=== PATIENT | female | born 1935 | race Caucasian/White ===

== ENCOUNTER 2022-11-05 11:48 | Inpatient (IN) | payer MEDICARE, OTHER ==
[~2022-11-05] VITALS: Ht 157.5 cm; Wt 49.5 kg
[~2022-11-05 11:48] MED LIST: ACET325 PO; ASPI325 PO; ASPI81CH; ASPI81EC; ASPI81EC PO; BUME2 PO; DABI150C PO; DELTASONE20 MG PO; DORZOLAMIDE 2%10 M3 BOTHEYES; DORZOPSO BOTHEYES; EYEDROPS; FAMO20 PO; FENT50TP TOP; FLEC50 PO; FURO20 PO; HYDACE10B; HYDCHL25 PO; HYDMOR2 PO; HYDR1TAB94 PO; K-Dur20 MEQ PO; LISI5 PO; LISINOPRIL TAB 10M; METO25ER PO; METO50 PO; OXYC5 PO; POTCHL20ER PO; PRADAXA; Percocet 5-3251 EACH PO; Prinivil10 MG PO; RXSULTRIDS PO; SENN187 PO; SPIR25 PO; SULTRIDS PO; TIMO.5OPS
[2022-11-05 13:10] LABS: EOSINOPHILS ABSOLUTE AUTO 0.11 K/mm3 (0.00-0.68); EOSINOPHILS PERCENT AUTO 1 % (0-6); Hematocrit 38.9 % (33.0-51.0); Hemoglobin 12.8 g/dL (11.5-16.0); IMMATURE GRAN ABSOLUTE AUTO 0.56 K/mm3 (0.00-0.10); IMMATURE GRAN PERCENT AUTO 4 % (0-1); LYMPHOCYTES ABSOLUTE AUTO 1.88 K/mm3 (0.84-5.20); LYMPHOCYTES PERCENT AUTO 15 % (21-46); MONOCYTES ABSOLUTE AUTO 0.75 K/mm3 (0.16-1.47); MONOCYTES PERCENT AUTO 6 % (4-13); Mean Corpuscular HGB 31.1 pg (26.0-34.0); Mean Corpuscular HGB Conc 32.9 g/dL (31.5-36.5); Mean Corpuscular Volume 94 fL (80-100); Mean Platelet Volume 9.3 fL (9.1-12.4); NEUTROPHILS PERCENT AUTO 74 % (41-73); Platelet Count 364 K/mm3 (150-400); RDW Coefficient Variation 13.8 % (11.7-14.2); RDW Standard Deviation 47.9 fL (35.1-46.3); Red Blood Cell Count 4.12 M/mm3 (3.80-5.20); White Blood Cell Count 12.62 K/mm3 (4.00-11.30)
[2022-11-05 13:20] LABS: BASOPHILS ABSOLUTE AUTO 0.02 K/mm3 (0.00-0.23); BASOPHILS PERCENT AUTO 0 % (0-2)
[2022-11-05 13:29] LABS: Albumin, Blood 3.3 g/dL (3.4-5.0); Albumin/Globulin Ratio 0.7 (0.8-1.8); Bilirubin, Total 0.5 mg/dL (0.1-1.0); Calcium, Blood 9.9 mg/dL (8.5-10.1); Globulin, Blood 4.6 g/dL (2.2-4.0); Potassium, Blood 4.1 mmol/L (3.5-5.5); Total Protein, Blood 7.9 g/dL (6.4-8.2)
[2022-11-05] MEDS ORDERED: XARELTO15 MG PO ×2 (18:49)
[2022-11-05] MEDS ORDERED: METO100ER PO (18:49)
[2022-11-05 19:39] LABS: Source, Urine Straight Cath
[2022-11-05 19:43] LABS: Appearance, Urine Clear (Clear); Bilirubin, Urine Neg (Neg); Blood, Urine Neg (Neg); Glucose Qualitative, Urine Neg (Neg); Ketones, Urine Neg (Neg); Leukocyte Esterase, Urine Neg (Neg); Nitrite, Urine Neg (Neg); Protein, Urine Neg (Neg); Urobilinogen, Urine NORM (Normal); pH, Urine 6.5 (5.0-8.0)
[2022-11-05 19:46] LABS: Color, Urine Pale Yellow (P-Yellow)
--- NOTE | 2022-11-06 04:27 | NUR ---
SHIFT SUMMARY 86 YR F ADMITTED ON 11/05/22 FOR CELLULITIS OF THE LEFT LOWER LEG. FULL CODE. NO ACUTE CHANGES THIS SHIFT. PT IS VERY PLEASANT AND COOPERATIVE WITH CARE. SHE CALLS APPROPRIATELY TO USE THE BEDSIDE COMMODE. URINALYSIS WAS TAKEN AND RESULTS DID NOT INDICATE A UTI. SHE STATES A PAIN LEVEL OF 4 IN HER LEFT LOWER EXTREMITY AND WAS GIVEN PAIN MEDS PER EMAR. THE TOP OF HER LEFT FOOT HAS 2 QUARTER SIZED BLISTERS THAT ARE WEEPING.
[2022-11-06 06:09] LABS: Hematocrit 34.9 % (33.0-51.0); Hemoglobin 11.7 g/dL (11.5-16.0); Mean Corpuscular HGB 31.5 pg (26.0-34.0); Mean Corpuscular HGB Conc 33.5 g/dL (31.5-36.5); Mean Corpuscular Volume 94 fL (80-100); Mean Platelet Volume 9.6 fL (9.1-12.4); Platelet Count 334 K/mm3 (150-400); RDW Coefficient Variation 13.8 % (11.7-14.2); RDW Standard Deviation 47.8 fL (35.1-46.3); Red Blood Cell Count 3.72 M/mm3 (3.80-5.20); White Blood Cell Count 11.04 K/mm3 (4.00-11.30)
[2022-11-06 06:31] LABS: Thyroxine (T4) 5.6 ug/dL (4.8-13.9)
[2022-11-06 06:34] LABS: Bun/Creatinine Ratio 45.6 (12.0-20.0); Calcium, Blood 8.9 mg/dL (8.5-10.1); Creatinine, Blood 0.79 mg/dL (0.40-1.00); Potassium, Blood 3.8 mmol/L (3.5-5.5); Thyroid Stimulating Hormone 1.69 uIU/mL (0.360-4.800)
--- NOTE | 2022-11-06 19:42 | NUR ---
SUMMARY- PT A/O X4, USES CALL LIGHT. GETS UP TO BSC SBA VOIDING, HAD 2 MED SOFT BROWN BM'S TODAY. LLE CELLULITIS, RED, +2-3 EDEMA, BLISTERING, ONE OPEN AND DRAINING MOD AMOUNT CLEAR SEROUS, LEFT PEPITO AND CHANGED DISP CHUCKS. PT HAD OXY 5MG X1 TODAY FOR PAIN 3/10 UP TO 5/10 WITH MOVEMENT OR TOUCHING. PT TOLERATING FOOD AND FLUIDS. HAD CT END OF SHIFT. REPORTED TO SUMAYA LEDBETTER RN.
--- NOTE | 2022-11-07 04:25 | NUR ---
SHIFT SUMMARY PATIENT HAD NO ACUTE CHANGES. AXOX 4 AND SBA TO BSC. LLE CELLULITIS WITH TWO QUARTER SIZE BLISTERS. MILD WEEPING OPEN TO AIR WITH DISPOSABLE CHUCKS. DENIES CHEST PAIN, SOB, AND N/V. VSS/AFEBRILE. COOPERATIVE WITH CARE. CALL LIGHT IN REACH. BED IN LOWEST POSITION. WILL CONTINUE TO MONITOR UNTIL DAY SHIFT NURSE ASSUMES CARE.
[2022-11-07 05:33] LABS: Mean Corpuscular HGB 30.5 pg (26.0-34.0); Mean Corpuscular HGB Conc 32.4 g/dL (31.5-36.5); Mean Corpuscular Volume 94 fL (80-100); Mean Platelet Volume 9.5 fL (9.1-12.4); Platelet Count 367 K/mm3 (150-400); RDW Coefficient Variation 13.8 % (11.7-14.2); RDW Standard Deviation 48.2 fL (35.1-46.3); Red Blood Cell Count 3.61 M/mm3 (3.80-5.20)
[2022-11-07 06:16] LABS: Albumin, Blood 2.5 g/dL (3.4-5.0); Albumin/Globulin Ratio 0.7 (0.8-1.8); Bilirubin, Total 0.4 mg/dL (0.1-1.0); Bun/Creatinine Ratio 32.3 (12.0-20.0); Creatinine, Blood 0.84 mg/dL (0.40-1.00); Globulin, Blood 3.7 g/dL (2.2-4.0); Potassium, Blood 4.1 mmol/L (3.5-5.5); Total Protein, Blood 6.2 g/dL (6.4-8.2)
[2022-11-07 07:35] LABS: BAND PERCENT MAN 2 % (0-8); BASOPHILS ABSOLUTE MAN 0.12 K/mm3 (0.00-0.23); BASOPHILS PERCENT MAN 1 % (0-2); EOSINOPHILS ABSOLUTE MAN 0.25 K/mm3 (0.00-0.68); EOSINOPHILS PERCENT MAN 2 % (0-6); LYMPHOCYTES ABSOLUTE MAN 1.75 K/mm3 (0.84-5.20); LYMPHOCYTES PERCENT MAN 14 % (21-46); METAMYELOCYTE ABSOLUTE MAN 0.12 K/mm3 (0.00-0.00); METAMYELOCYTE PERCENT MAN 1 % (0-0); MONOCYTES PERCENT MAN 12 % (4-13); MYELOCYTE ABSOLUTE MAN 1.12 K/mm3 (0.00-0.00); MYELOCYTE PERCENT MAN 9 % (0-0); NEUTROPHILS ABSOLUTE MAN 7.62 K/mm3 (1.96-9.15); SEG NEUTROPHILS PERCENT MAN 59 % (41-73); TOTAL CELLS COUNTED 100
--- NOTE | 2022-11-07 13:10 | NUR ---
WOUND CARE WOUND PHOTO AND ASSESSMENT IN HARD CHART. HYDROCOLLOID TO DORSAL FOOT AND POSTERIOR PARTIAL THICKNESS WOUNDS. PT WOULD BENEFIT FROM CUSTOM ORTHOTIC SHOE. 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 WOUND CLINIC REFERRAL PLACED TO ASSIST PT WITH OBTAINING PROPER FOOTWEAR TO MITIGATE RISK OF FURTHER FOOT ULCERATION
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
--- NOTE | 2022-11-07 16:20 | NUR ---
SPN SHIFT SUMMARY PATIENT WAS PLESANT TODAY COOPERATIVE WITH CARE. PATIENT WAS CONTENIT OF BOWEL AND BLADDER TODAY, WAS A ONE PERSON STAND PIVOT TO THE BS. PATIENT WAS SEEN BY WOUND CARE NURSE MEDIPROE WAS APPLIED TO BLISTERS ON PATIETN LEFT FOOT, PER WOUND NURSE TO BE CHAGED A COUPLE TIMES A WEEK. PATIENT HAD MODERATE AMOUNT OF DRAINAGE FROM LLE THIS AM. PATIENT REQUESTED TO SPEAK TO SPIRITAL CARE TODAY. PATIENT IS IN BED RESTING, CALL LIGHT WITHIN REACH. WILL CONTINUE TO MONITORE AND PROVIDE CARE.
--- NOTE | 2022-11-08 04:23 | NUR ---
SHIFT SUMMARY PATIENT HAD NO ACUTE CHANGES. AXOX 4 AND STAND/PIVOT TO BSC. HX POLIO. DRESSING TO LLE INTACT. DENIES CHEST PAIN, SOB, AND N/V. LLE PAIN AND OXYCODONE 5 MG GIVEN PER EMAR. PIV REMAINS INTACT. IV ABX INFUSED. WATCHED TV FIRST PART AND SHIFT AND ABLE TO REST AFTER. CALL LIGHT IN REACH. BED IN LOWEST POSITION. WILL CONTINUE TO MONITOR UNTIL DAY SHIFT NURSE ASSUMES CARE.
[2022-11-08 05:30] LABS: Hematocrit 33.5 % (33.0-51.0); Hemoglobin 10.8 g/dL (11.5-16.0); Mean Corpuscular HGB 30.5 pg (26.0-34.0); Mean Corpuscular HGB Conc 32.2 g/dL (31.5-36.5); Mean Corpuscular Volume 95 fL (80-100); Mean Platelet Volume 9.3 fL (9.1-12.4); Platelet Count 371 K/mm3 (150-400); RDW Coefficient Variation 13.6 % (11.7-14.2); RDW Standard Deviation 47.9 fL (35.1-46.3); Red Blood Cell Count 3.54 M/mm3 (3.80-5.20); White Blood Cell Count 11.49 K/mm3 (4.00-11.30)
[2022-11-08 06:18] LABS: Bun/Creatinine Ratio 30.7 (12.0-20.0); Calcium, Blood 8.8 mg/dL (8.5-10.1); Creatinine, Blood 0.68 mg/dL (0.40-1.00); Potassium, Blood 3.8 mmol/L (3.5-5.5)
[2022-11-08 06:20] LABS: BAND PERCENT MAN 2 % (0-8); BASOPHILS PERCENT MAN 0 % (0-2); EOSINOPHILS ABSOLUTE MAN 0.34 K/mm3 (0.00-0.68); EOSINOPHILS PERCENT MAN 3 % (0-6); LYMPHOCYTES ABSOLUTE MAN 1.26 K/mm3 (0.84-5.20); LYMPHOCYTES PERCENT MAN 11 % (21-46); METAMYELOCYTE ABSOLUTE MAN 0.34 K/mm3 (0.00-0.00); METAMYELOCYTE PERCENT MAN 3 % (0-0); MONOCYTES ABSOLUTE MAN 0.68 K/mm3 (0.16-1.47); MONOCYTES PERCENT MAN 6 % (4-13); MYELOCYTE ABSOLUTE MAN 0.34 K/mm3 (0.00-0.00); MYELOCYTE PERCENT MAN 3 % (0-0); SEG NEUTROPHILS PERCENT MAN 72 % (41-73); TOTAL CELLS COUNTED 100
[2022-11-08] MEDS ORDERED: VISBIOME 112.51 EACH PO ×2 (15:17)
[2022-11-08] MEDS ORDERED: CEFTRIAXONE2 G1 IV ×2 (15:18)
--- NOTE | 2022-11-08 17:45 | NUR ---
DISCHARGE NOTE- PT WAS GIVEN VERBAL AND WRITTEN DISCHARGE INSTRUCTIONS AND ACKNOWLEDGED UNDERSTANDING OF THEM. PT IS SCHEDULED WITH [facility] FOR ABX AT 11AM TOMORROW, AND FRIDAY AT 11. [facility] RN CAME UP AND REMOVED PERIPHERAL IV AND PLACED A PG FOR OUT PT ABX INFUSION TOMORROW MORNING. MEDS WERE FAXED TO [facility] PER THE PT REQUEST. NO FURTHE RQUESTIONS AT THE TIME OF DISCHARGE TEACHING. PT SON PRESENT FOR DISCHARGE TEACHING. PT WAS ESCORTED OUT VIA WC WITH NO S&S OF DISTRESS NOTED AT THE TIME OF DISCHARGE.
== END 2022-11-08 16:22 | disposition home or self-care (01) | DRG 603 ==
LOC: ER 11:48 → MEDS 16:55
PROVIDERS: Emergency Medicine; Physician Assistant; Student in an Organized Health Care Education/Training Program; ADMIT Internal Medicine
DX: L03.116 Cellulitis of left lower limb (principal); I48.20 Chronic atrial fibrillation, unspecified; E87.1 Hypo-osmolality and hyponatremia; Z28.21 Immunization not carried out because of patient refusal; G89.29 Other chronic pain; I50.9 Heart failure, unspecified; G14 Postpolio syndrome; M51.36 Other intervertebral disc degeneration, lumbar region; S81.802A Unspecified open wound, left lower leg, initial encounter; M19.072 Primary osteoarthritis, left ankle and foot; M54.40 Lumbago with sciatica, unspecified side; Z90.49 Acquired absence of other specified parts of digestive tract; Z98.49 Cataract extraction status, unspecified eye; Z90.89 Acquired absence of other organs; Z98.890 Other specified postprocedural states; Z91.011 Allergy to milk products; Z91.013 Allergy to seafood; Z88.8 Allergy status to other drugs, medicaments and biological substances; Z79.899 Other long term (current) drug therapy; X58.XXXA Exposure to other specified factors, initial encounter
CPT/HCPCS: 36415; 71045; 73701; 80048; 80053; 81003; 83605; 83880; 84436; 84443; 85025; 85027; 86140; 87040; 90471; 90714; 93005; 93010; 93971; 96374; 99284-25; A9270; C1751; J0690; J1940; Q9967

== ENCOUNTER 2022-11-09 01:01 | Day surgery (SDC) | payer MEDICARE, OTHER ==
[~2022-11-09 01:01] MED LIST changes: +CEFTRIAXONE2 G1 IV; +METO100ER PO; +VISBIOME 112.51 EACH PO; +XARELTO15 MG PO
--- NOTE | 2022-11-09 11:26 | NUR ---
EDUCATED REGARDING [facility] WEEKEND AND WEEKDAY ROUTINES.
== END 2022-11-09 11:21 | disposition home or self-care (01) ==
LOC: ATC 01:01
DX: L03.116 Cellulitis of left lower limb (principal); I10 Essential (primary) hypertension; I48.20 Chronic atrial fibrillation, unspecified; M19.90 Unspecified osteoarthritis, unspecified site
CPT/HCPCS: 96374; J0696

== ENCOUNTER 2022-11-10 00:20 | Day surgery (SDC) | payer MEDICARE, OTHER | END 2022-11-10 11:07 | disposition home or self-care (01) | LOC: ATC 00:20 | DX: L03.116 Cellulitis of left lower limb (principal); I10 Essential (primary) hypertension; I48.20 Chronic atrial fibrillation, unspecified | CPT/HCPCS: 96374; J0696 ==

== ENCOUNTER 2022-11-21 02:07 | Day surgery (SDC) | payer MEDICARE, OTHER | END 2022-11-21 22:52 | disposition home or self-care (01) | LOC: WOUND 02:07 | DX: L97.522 Non-pressure chronic ulcer of other part of left foot with fat layer exposed (principal); S91.302D Unspecified open wound, left foot, subsequent encounter; L03.116 Cellulitis of left lower limb; I73.9 Peripheral vascular disease, unspecified; I87.2 Venous insufficiency (chronic) (peripheral); R60.0 Localized edema | CPT/HCPCS: G0463 ==

== ENCOUNTER 2024-09-29 15:17 | Emergency (ER) | payer MEDICARE, OTHER ==
[~2024-09-29] VITALS: Ht 154.9 cm; Wt 50.8 kg
[2024-09-29 15:44] VITALS: BP 153/78
[2024-09-29 16:17] LABS: BASOPHILS ABSOLUTE AUTO 0.06 K/mm3 (0.00-0.23); BASOPHILS PERCENT AUTO 1 % (0-2); EOSINOPHILS ABSOLUTE AUTO 0.21 K/mm3 (0.00-0.68); EOSINOPHILS PERCENT AUTO 3 % (0-6); Hematocrit 40.2 % (33.0-51.0); Hemoglobin 13.2 g/dL (11.5-16.0); IMMATURE GRAN ABSOLUTE AUTO 0.01 K/mm3 (0.00-0.10); IMMATURE GRAN PERCENT AUTO 0 % (0-1); LYMPHOCYTES ABSOLUTE AUTO 1.48 K/mm3 (0.84-5.20); LYMPHOCYTES PERCENT AUTO 19 % (21-46); MONOCYTES ABSOLUTE AUTO 0.54 K/mm3 (0.16-1.47); MONOCYTES PERCENT AUTO 7 % (4-13); Mean Corpuscular HGB 31.5 pg (26.0-34.0); Mean Corpuscular HGB Conc 32.8 g/dL (31.5-36.5); Mean Corpuscular Volume 96 fL (80-100); Mean Platelet Volume 9.4 fL (9.1-12.4); NEUTROPHILS ABSOLUTE AUTO 5.37 K/mm3 (1.96-9.15); NEUTROPHILS PERCENT AUTO 70 % (41-73); Platelet Count 237 K/mm3 (150-400); RDW Standard Deviation 48.9 fL (35.1-46.3); Red Blood Cell Count 4.19 M/mm3 (3.80-5.20); White Blood Cell Count 7.67 K/mm3 (4.00-11.30)
[2024-09-29 16:37] LABS: Albumin, Blood 3.7 g/dL (3.4-5.0); Albumin/Globulin Ratio 1.2 (0.8-1.8); Bilirubin, Total 0.5 mg/dL (0.1-1.0); Bun/Creatinine Ratio 28.5 (12.0-20.0); Calcium, Blood 9.4 mg/dL (8.5-10.1); Creatinine, Blood 0.77 mg/dL (0.40-1.00); Globulin, Blood 3.1 g/dL (2.2-4.0); Potassium, Blood 4.2 mmol/L (3.5-5.5); Total Protein, Blood 6.8 g/dL (6.4-8.2)
[2024-09-29] MEDS ORDERED: Cephalexin Monohydrate 500 MG Cap PO ONE (17:55)
[2024-09-29] MEDS ORDERED: CEPH500 PO (17:57)
== END 2024-09-29 18:14 | disposition home or self-care (01) ==
LOC: ER 15:17
PROVIDERS: Student in an Organized Health Care Education/Training Program
DX: L03.116 Cellulitis of left lower limb (principal); I48.91 Unspecified atrial fibrillation; Z79.01 Long term (current) use of anticoagulants; Z79.899 Other long term (current) drug therapy; Z88.8 Allergy status to other drugs, medicaments and biological substances; Z91.011 Allergy to milk products; Z91.013 Allergy to seafood
CPT/HCPCS: 80053; 85025; 93005; 93010; 99283-25; A9270

== ENCOUNTER 2025-07-17 13:23 | Emergency (ER) | payer MEDICARE, OTHER ==
[~2025-07-17] VITALS: Ht 149.9 cm; Wt 63.5 kg
[~2025-07-17 13:23] MED LIST changes: +CEPH500 PO
[2025-07-17 14:53] LABS: BASOPHILS ABSOLUTE AUTO 0.07 K/mm3 (0.00-0.23); BASOPHILS PERCENT AUTO 1 % (0-2); EOSINOPHILS ABSOLUTE AUTO 0.10 K/mm3 (0.00-0.68); EOSINOPHILS PERCENT AUTO 1 % (0-6); Hematocrit 40.6 % (33.0-51.0); Hemoglobin 13.3 g/dL (11.5-16.0); IMMATURE GRAN ABSOLUTE AUTO 0.03 K/mm3 (0.00-0.10); IMMATURE GRAN PERCENT AUTO 0 % (0-1); LYMPHOCYTES ABSOLUTE AUTO 1.73 K/mm3 (0.84-5.20); LYMPHOCYTES PERCENT AUTO 17 % (21-46); MONOCYTES ABSOLUTE AUTO 0.62 K/mm3 (0.16-1.47); MONOCYTES PERCENT AUTO 6 % (4-13); Mean Corpuscular HGB Conc 32.8 g/dL (31.5-36.5); Mean Corpuscular Volume 96 fL (80-100); NEUTROPHILS ABSOLUTE AUTO 7.74 K/mm3 (1.96-9.15); NEUTROPHILS PERCENT AUTO 75 % (41-73); NRBC ABSOLUTE 0.00 K/mm3 (0.00-0.02); NRBC Auto 0.0 /100 WBC (0.0-0.2); Platelet Count 274 K/mm3 (150-400); RDW Coefficient Variation 14.2 % (11.7-14.2); RDW Standard Deviation 49.3 fL (35.1-46.3)
[2025-07-17 15:10] LABS: Alanine Aminotransfer (ALT/SGP 26.0 U/L (12-78); Albumin, Blood 3.6 g/dL (3.4-5.0); Albumin/Globulin Ratio 1.1 (0.8-1.8); Anion Gap 11.0 mmol/L (3-11); Aspartate Aminotrans (AST/SGOT 35.0 U/L (12-37); Bilirubin, Total 0.8 mg/dL (0.1-1.0); Blood Urea Nitrogen 26.0 mg/dL (8-24); CO2, Blood 27.0 mmol/L (21-32); Calcium, Blood 8.9 mg/dL (8.5-10.1); Chloride, Blood 96.0 mmol/L (98-108); Creatinine, Blood 0.67 mg/dL (0.40-1.00); Globulin, Blood 3.4 g/dL (2.2-4.0); Glucose, Blood 98.0 mg/dL (70-99); Potassium, Blood 5.0 mmol/L (3.5-5.5); Sodium, Blood 129.0 mmol/L (136-145); Total Protein, Blood 7.0 g/dL (6.4-8.2)
[2025-07-17 16:33] LABS: Source, Urine Clean Catch
[2025-07-17 16:39] LABS: Bilirubin, Urine Neg (Neg); Color, Urine Yellow (P-Yellow); Glucose Qualitative, Urine Neg (Neg); Ketones, Urine 2+ (Neg); Leukocyte Esterase, Urine 1+ (Neg); Protein, Urine 2+ (Neg); Specific Gravity, Urine 1.025 (1.003-1.022); Urobilinogen, Urine NORM (Normal)
[2025-07-17 16:45] LABS: Red Blood Cells, Urine 0-2 /hpf (0-2)
[2025-07-17] MEDS ORDERED: Furosemide 10 MG / ML 2ML Vial IV ONE (17:00)
[2025-07-17 20:05] VITALS: BP 165/91
== END 2025-07-17 20:07 | disposition home or self-care (01) ==
LOC: ER 13:23
PROVIDERS: Emergency Medicine; Physician Assistant
DX: I11.0 Hypertensive heart disease with heart failure (principal); I50.9 Heart failure, unspecified; E87.1 Hypo-osmolality and hyponatremia; I48.91 Unspecified atrial fibrillation; Z91.0110 Allergy to milk products, unspecified; Z88.8 Allergy status to other drugs, medicaments and biological substances; Z91.013 Allergy to seafood; Z79.01 Long term (current) use of anticoagulants; Z79.899 Other long term (current) drug therapy
CPT/HCPCS: 71046; 80053; 81001; 83880; 84484; 85025; 85379; 87086; 93005; 93010; 93971; 96374; 99285-25; J1938

== ENCOUNTER → 2025-08-16 | Outpatient (CLI) | payer MEDICARE, OTHER ==
[2025-08-16 16:52] LABS: Source, Urine Voided
[2025-08-16 19:15] LABS: Bilirubin, Urine Neg (Neg); Glucose Qualitative, Urine Neg (Neg); Ketones, Urine Neg (Neg); Leukocyte Esterase, Urine 1+ (Neg); Protein, Urine Neg (Neg); Specific Gravity, Urine 1.010 (1.003-1.022); Urobilinogen, Urine NORM (Normal)
[2025-08-16 19:20] LABS: Color, Urine Pale Yellow (P-Yellow)
[2025-08-16 19:23] LABS: Red Blood Cells, Urine 0-2 /hpf (0-2)
== END | disposition home or self-care (01) ==
LOC: LAB SHORT 09:00 → LAB 09:00
PROVIDERS: Nurse Practitioner Family
DX: N39.0 Urinary tract infection, site not specified (principal)
CPT/HCPCS: 81001; 87086